=== PATIENT | male | born 1960 | race Caucasian/White ===

== ENCOUNTER → 2017-10-15 | Day surgery (SDC) | payer BC ==
[~2017-10-15] MED LIST: Propofol 200 MG/20 ML SDV IV ONE; Sodium Chloride 0.9% 500 ML IV SCH
[2017-10-15 14:00] LABS: CHLORIDE,CL 103 mEq/L (98-106); SODIUM,NA 141 mEq/L (136-145)
[2017-10-15 15:18] VITALS: BP 96/55
--- NOTE | 2017-10-15 15:51 | OR ---
DATE OF OPERATION: 10/15/2017 PREOPERATIVE DIAGNOSIS: 1. GASTROESOPHAGEAL REFLUX DISEASE. 2. ABDOMINAL PAIN. POSTOPERATIVE DIAGNOSIS: 1. GASTROESOPHAGEAL REFLUX DISEASE. 2. ABDOMINAL PAIN. SURGEON: Gene Swartz MD PROCEDURE: EGD WITH BIOPSIES X2, KATHERINE. ANESTHESIA: DOCUMENTATION SPEC due to chronic GERD. COMPLICATIONS: None. SPECIMEN: 1. Antral biopsy x2. 2. Antral KATHERINE. FINDINGS: 1. Full-length EGD. 2. Antral gastritis with multiple erosions/ulcerations. 3. Mild hiatal hernia without esophagitis. RECOMMENDATIONS: Medical followup with TOBIAS Schroeder. INDICATIONS: The patient has been having some episodes of epigastric pain and reflux, he was sent for EGD. DESCRIPTION OF PROCEDURE: The patient was prepped and draped, placed in the left lateral decubitus position. A lubricated Olympus gastroscope was inserted over a bit and advanced to cricopharyngeus area and easily intubated in the esophagus. The esophageal lining was benign in its entire course. The Z-line was crisp and sharp at 38 cm. There is a mild-sized hiatal hernia present with some spontaneous reflux. No distal esophagitis, stricturing, ulceration, or Hodges's changes seen. The scope was advanced into the stomach through the pylorus into the second portion of the duodenum. This and the duodenal bulb were benign. The scope was brought back into the stomach and retroflexed. The upper fundus and cardia were unremarkable. Hiatal hernia was easily visualized from below. Upon straightening, the rest of the fundus was unremarkable. The patient has diffuse antral gastritis with multiple small erosions and ulcerations in and around the pyloric area. Biopsy x2 were taken of the most affected region and a KATHERINE test. Air was then suctioned, scope removed without complication. MAURO/DARLINE /[id number]
== END ==
LOC: CC.SDS 13:37
PROVIDERS: ATTEND Family Medicine
DX: K29.50 Unspecified chronic gastritis without bleeding (principal); K44.9 Diaphragmatic hernia without obstruction or gangrene; K25.9 Gastric ulcer, unspecified as acute or chronic, without hemorrhage or perforation; I10 Essential (primary) hypertension; K21.9 Gastro-esophageal reflux disease without esophagitis; Z79.82 Long term (current) use of aspirin; Z79.899 Other long term (current) drug therapy; Z87.891 Personal history of nicotine dependence
CPT/HCPCS: 36415; 43239; 80053; 80061; 82550; 87081; J2704; J7040